=== PATIENT | female | born 1980 | race Caucasian/White ===

== ENCOUNTER 2024-12-23 23:56 | Emergency (ER) | payer BC, OTHER ==
[~2024-12-23] VITALS: Ht 175.3 cm; Wt 154.2 kg
[2024-12-24 00:55] LABS: BASOPHILS # (AUTO) 0.1 K/UL (0.0-0.2); EOSINOPHILS # (AUTO) 0.1 K/uL (0.0-0.7); EOSINOPHILS % (AUTO) 1.3 % (0.0-7.0); HEMOGLOBIN 11.7 g/dL (10.9-14.3); LYMPHOCYTES # (AUTO) 4.7 K/uL (0.8-4.8); LYMPHOCYTES % (AUTO) 46.6 % (20.5-51.5); MEAN CORPUSCULAR HEMOGLOBIN 24.4 uug (24.7-32.8); MEAN CORPUSCULAR HGB CONC 32 g/dL (32.3-35.6); MEAN CORPUSCULAR VOLUME 77.1 fL (75.5-95.3); MONOCYTES # (AUTO) 0.7 K/uL (0.1-1.30); MONOCYTES % (AUTO) 6.6 % (0.0-11.0); NEUTROPHILS # (AUTO) 4.5 K/uL (1.8-8.9); NEUTROPHILS % (AUTO) 44.5 % (38.5-71.5); PLATELET COUNT (AUTO) 241 K/uL (179-408); RED CELL DISTRIBUTION WIDTH 15.7 % (12.3-17.7); WHITE BLOOD COUNT (AUTO) 10.1 K/uL (3.8-11.8)
[2024-12-24 00:57] LABS: DIFFERENTIAL COMMENT 1
[2024-12-24] MEDS: METOCLOPRAMIDE HCL 10 MG/2 ML VIAL IV ONE (00:57)
[2024-12-24] MEDS: diphenhydrAMINE 50 MG/1 ML VIAL IV ONE (00:57)
[2024-12-24 01:05] LABS: CALCIUM 9.4 mg/dL (8.5-10.1); POTASSIUM 3.4 mmol/L (3.5-5.1)
[2024-12-24 01:11] LABS: ALBUMIN 3.2 g/dL (3.4-5.0); BILIRUBIN,TOTAL 0.5 mg/dL (0.2-1.0); TOTAL PROTEIN, SERUM 6.9 g/dL (6.4-8.2)
[2024-12-24] MEDS: IV NORMAL SALINE 500 ML IV ONE (01:39)
[2024-12-24] MEDS ORDERED: POTASSIUM CHLORIDE 20 MEQ TAB.PRT.SR ONE (02:08)
[2024-12-24] MEDS ORDERED: POTASSIUM CHLORIDE 20 MEQ POWDER PACKET ONE (02:13)
[2024-12-24] MEDS: POTASSIUM CHLORIDE 20 MEQ TAB.PRT.SR PO ONE (02:21)
[2024-12-24] MEDS: POTASSIUM CHLORIDE 20 MEQ POWDER PACKET PO STA (02:21)
[2024-12-24] MEDS ORDERED: METO-295 PO (02:22)
[2024-12-24 02:45] VITALS: BP 118/71; O2SAT 97
== END 2024-12-24 02:47 | disposition home or self-care (01) ==
LOC: ER 12-24 00:15
DX: R51.9 Headache, unspecified (principal); R10.13 Epigastric pain; R11.2 Nausea with vomiting, unspecified; R61 Generalized hyperhidrosis; F41.9 Anxiety disorder, unspecified; Z88.5 Allergy status to narcotic agent; Z90.49 Acquired absence of other specified parts of digestive tract
CPT/HCPCS: 99285; 96374; 70450; 96375; 80053; 83690; 85025; J1200; J2765; J7040; A4606; A4663